=== PATIENT | female | born 1950 ===

== ENCOUNTER 2016-08-31 09:00 | Outpatient (RCR) | payer OTHER ==
[~2016-08-31 09:00] MED LIST: ATORVASTATIN CA20 MG ORAL; EXEMESTANE25 MG PO; GLIMEPIRIDE1 MG ORAL; LEVOTHYROXINE50 MCG ORAL; LOSARTAN POTASS50 MG ORAL; METFORMIN HCL500 M1 ORAL
== END 2016-09-19 | disposition home or self-care (01) ==
LOC: PTY 09:00
PROVIDERS: ATTEND Internal Medicine
DX: M54.5 Low back pain (principal); G89.29 Other chronic pain
CPT/HCPCS: 97035; 97110; 97140; 97161; G0283

== ENCOUNTER 2016-10-10 09:35 | Outpatient (RCR) | payer OTHER | END 2016-10-20 | disposition home or self-care (01) | LOC: PTY 09:35 | PROVIDERS: ATTEND Internal Medicine | DX: M54.5 Low back pain (principal); G89.29 Other chronic pain ==

== ENCOUNTER 2016-10-27 09:20 | Outpatient (RCR) | payer OTHER | END 2016-11-19 | disposition home or self-care (01) | LOC: PTY 09:20 | PROVIDERS: ATTEND Internal Medicine | DX: M54.5 Low back pain (principal); G89.29 Other chronic pain ==

== ENCOUNTER 2017-05-21 09:00 | Outpatient (RCR) | payer OTHER | END 2017-05-22 | disposition home or self-care (01) | LOC: PTY 09:00 | DX: M17.12 Unilateral primary osteoarthritis, left knee (principal); M54.5 Low back pain ==

== ENCOUNTER 2017-05-28 09:00 | Outpatient (RCR) | payer OTHER | END 2017-06-21 | disposition home or self-care (01) | LOC: PTY 09:00 | DX: M17.12 Unilateral primary osteoarthritis, left knee (principal); M54.5 Low back pain ==

== ENCOUNTER 2017-10-11 09:00 | Outpatient (RCR) | payer OTHER | END 2017-10-20 | disposition home or self-care (01) | LOC: PTY 09:00 | DX: S93.492D Sprain of other ligament of left ankle, subsequent encounter (principal) ==